=== PATIENT | female | born 1960 | race Caucasian/White ===

== ENCOUNTER 2016-09-21 13:46 | Emergency (ER) | payer OTHER ==
[~2016-09-21] VITALS: Ht 167.6 cm; Wt 77.1 kg
[~2016-09-21 13:46] MED LIST: ACETAMINOPHEN-1 EAC2 PO; AMBIEN 10MG10 MG PO; AMITIZA24 MCG PO; ARIPIPRAZOLE5 M1 PO; ATORVASTATIN CA10 M1 PO; CIPROFLOXACIN500 MG PO; CLONIDINE HYDR0.1 MG PO; DIAZEPAM10 M1 PO; DIBUCAINE 1% TOP; DICYCLOMINE HCL10 MG PO; DIFLUCAN150 MG PO; DILAUDID2 M1 PO; DILAUDID2 MG PO; ELMIRON100 MG PO; ESTRACE0.1 MG/GM VAG; ESTRACE0.5 MG PO; ESTRADIOL1 M1 PO; FENTANYL1 EAC5 TOP; FLUOXETINE HCL20 M2 PO; FUROSEMIDE20 M1 PO; GABAPENTIN300 M2 PO; HYDROXYZINE HCL25 MG PO; HYDROXYZINE PAM50 MG PO; KEFLEX500 M1 PO; LASIX20 M1 PO; LYRICA150 M1 PO; LYRICA75 MG PO; MACROBID100 MG PO; OSPHENA60 MG PO; OXYCODONE5 M1 PO; OXYCODONE5 MG PO; OXYMORPHONE HYD30 MG PO; PERCOCET 325 MG1 TA2 PO; QUETIAPINE FUMA25 MG PO; QUETIAPINE FUMA50 MG PO; REMERON30 M1 PO; SEROQUEL XR400 MG PO; TEMOVATE0.05% TOP; TERAZOL 745 GM VG; TRAMADOL HCL50 M1 PO; TRAMADOL HYDROC50 MG PO; TRAMADOL50 MG PO; VALIUM5 M1 PO; ZOFRAN ODT4 MG PO
--- NOTE | 2016-09-21 14:28 | ED GENERAL ADULT ---
History of Present Illness General Chief Complaint: Female Urogenital Problems Stated Complaint: PT STATES "I HAVE PRESSURE IN MY BUTT" Source: patient Exam Limitations: no limitations Vital Signs & Intake/Output Vital Signs & Intake/Output Vital Signs Date Time Temp Pulse Resp B/P Pulse O2 O2 Flow FiO2 Ox Delivery Rate 09/21 1826 98.6 69 18 143/75 97 Room Air 09/21 1400 98.8 95 20 142/86 97 Room Air Room Air ED Intake and Output 09/22 0000 09/21 1200 Intake Total Output Total Balance Patient 170 lb Weight Allergies Coded Allergies: NSAIDS (Non-Steroidal Anti-Inflamma (HIVES 04/02/16) Sulfa (Sulfonamide Antibiotics) (PER PT LIVER AND KIDNEYS SHUT DOWN 04/02/16) acetaminophen (From TYLENOL) (HIVES 04/02/16) adhesive (TEARS SKIN 04/02/16) aspirin (HIVES, RASH 04/02/16) morphine (INJECTION CAUSING VOMITING 04/02/16) thiopental (ANAPHYLAXIS 04/02/16) Reconcile Medications Acetaminophen With Codeine (Acetaminophen-Cod #4 Tablet) 1 EACH TABLET 1 TAB PO Q6H PRN PAIN (Reported) Atorvastatin Calcium 10 MG TABLET 1 TAB PO DAILY CHOLESTEROL (Reported) Bisacodyl (Women's Laxative) 5 MG TABLET 2 TAB PO AD CONSTIPATION (Reported) Diazepam 10 MG TABLET 1 TAB PO BID PRN ANXIETY/SCIATICA (Reported) Dicyclomine Hydrochloride (Bentyl) 10 MG CAPSULE 1 CAP PO TID PRN CRAMPS Fentanyl 1 EACH PATCH.TD72 1 PAT TOP Q3D PAIN (Reported) Fluoxetine HCl (Prozac) 40 MG CAPSULE 1 CAP PO DAILY MENTAL HEALTH (Reported) Gabapentin 300 MG CAPSULE 2 CAP PO TID NERVE PAIN (Reported) Lidocaine HCl (Lidocaine HCl Viscous) 2 % SOLUTION 15 ML PO DAILY PRN PERIRCTAL PAIN Lidocaine HCl (Lidocaine HCl Viscous) 2 % SOLUTION 15 ML PO DAILY PRN KARYNA- RECTAL PAIN APPLY TO PERIRECTAL AREA DAILY NEEDED Linaclotide (Linzess) 290 MCG CAPSULE 1 CAP PO DAILY GI (Reported) Nitrofurantoin Monohyd/M-Cryst (Nitrofurantoin Yancey-Mcr 100 MG) 100 MG CAPSULE 1 CAP PO BID UTI (Reported) Phenazopyridine HCl 100 MG TABLET 2 TAB PO TID UTI (Reported) Polyethylene Glycol 3350 17 GRAM POWD.PACK 1 PAC PO DAILY GI (Reported) Pregabalin (Lyrica) 150 MG CAPSULE 1 CAP PO TID NERVE PAIN (Reported) Terconazole (Terazol 7) 0.4 % CREAM.APPL 1 A VG Q7D YEAST INFECTION (Reported ) Triage Note: PT TO ED WITH C/O CHRONIC RECTAL PAIN, "I HAVE BEEN ON [employer] O SUPPOSITORIES FOR IT, BUT I CAN'T FIND THEM ANYWHERE". Triage Nurses Notes Reviewed? yes Onset: Gradual Duration: week(s): Timing: recent history HPI: 09/21/16 3 PM 56-year-old female presents to the emergency department complaining of severe rectal pain. The patient states she's had ongoing rectal pain over the past 1-1 /2 months. She is seen a surgeon. She says she was told she has a rectal tear. She says every bowel movement is extremely painful. no fever or vomiting no abdominal pain. On physical exam she does have an external hemorrhoid. Rectal exam is nontender and no abscess was appreciated. Past History Travel History Traveled to [place] past 21 day No Medical History Any Pertinent Medical History? see below for history Neurological: NONE EENT: NONE Cardiovascular: hyperlipidemia Respiratory: NONE Gastrointestinal: SBO Hepatic: NONE Renal: NONE Musculoskeletal: chronic back pain, degen joint disease, falls, sciatica, right knee ligament injury Psychiatric: anxiety, depression Endocrine: NONE Blood Disorders: NONE Cancer(s): NONE SERVICE PLANNER/Reproductive: vulvodynia History of MRSA: No History of VRE: No History of CDIFF: No Surgical History Surgical History: partial knee transplant Psychosocial History Who do you live with Other (see notes) Services at Home None What is your primary language Russian Tobacco Use: Current Daily Use Daily Tobacco Use Amount/Type: => 5 Cigarettes daily ETOH Use: denies use Illicit Drug Use: denies illicit drug use Family History Hx Contributory? No Review of Systems Review of Systems Constitutional: Denies: fever. EENTM: Reports: no symptoms. Respiratory: Reports: no symptoms. Cardiovascular: Reports: no symptoms. GI: Reports: no symptoms. Genitourinary: Reports: no symptoms. Musculoskeletal: Reports: no symptoms. Skin: Reports: no symptoms. Neurological/Psychological: Reports: no symptoms. Hematologic/Endocrine: Reports: no symptoms. Immunologic/Allergic: Reports: no symptoms. Physical Exam Physical Exam General Appearance: alert, awake, anxious, mild distress Head: atraumatic Eyes: Bilateral: PERRL, EOMI. Ears, Nose, Throat: normal pharynx, normal ENT inspection Neck: normal inspection, supple Respiratory: normal breath sounds, chest non-tender, no respiratory distress Cardiovascular: regular rate/rhythm Gastrointestinal: soft, non-tender Rectal: heme negative stool, non-tender, no masses Back: normal inspection, normal range of motion Extremities: normal inspection, normal range of motion Neurologic/Psych: no motor/sensory deficits, awake, alert, oriented x 3 Skin: intact, normal color, warm/dry Comments: The patient rectal and external pelvic exams are negative. labs are unremarkable. urinalysis is negative. contrast pelvic CT unremarkable. the patient did get relief with viscous lidocaine applied to her perirectal area, and Bentyl. she is given follow-up with GI. Core Measures ACS in differential dx? No CVA/TIA Diagnosis: No Severe Sepsis Present: No Septic Shock Present: No Progress Differential Diagnoses I considered the following diagnoses in my evaluation of the patient: [ perirectal abscess, rectal trauma, hemorrhoids, vaginitis, UTI, intra-abdominal abscess, colitis] Plan of Care: Orders Procedure Date/time Status Add-on Test (ER Only) 09/21 1444 Active COMPREHENSIVE METABOLIC PANEL 09/21 1434 Complete CBC WITHOUT DIFFERENTIAL 09/21 1434 Complete CULTURE,URINE 09/21 1416 Active URINALYSIS 09/21 1403 Complete Current Medications Sig/Tresa Start time Last Medication Dose Stop Time Status Admin Acetaminophen 1,000 MG ONCE ONE 09/21 1445 CAN (Ofirmev) 09/21 1446 Laboratory Tests 09/21/16 1451: Anion Gap 7, Estimated GFR > 60, BUN/Creatinine Ratio 8.6, Glucose 88, Calcium 9.6, Total Bilirubin 0.6, AST 21, ALT 38, Alkaline Phosphatase 135 H, Total Protein 6.7, Albumin 3.8, Globulin 2.9, Albumin/Globulin Ratio 1.3, CBC w Diff NO MAN DIFF REQ, RBC 5.93 H, MCV 83.0, MCH 27.9, RDW 15.0 H, MPV 9.0, Gran % 62.9, Lymphocytes % 30.3, Monocytes % 4.2, Eosinophils % 1.5, Basophils % 1.1, Absolute Granulocytes 6.1, Absolute Lymphocytes 2.9, Absolute Monocytes 0.4, Absolute Eosinophils 0.1, Absolute Basophils 0.1, PUBS MCHC 33.6 09/21/16 1416: Urinalysis LIGHT H, Urine Color ORANG H, Urine Clarity CLEAR, Urine pH 5.5, Ur Specific [place] 1.010, Urine Protein 100 H, Urine Ketones TRACE H, Urine Nitrite POS H, Urine Bilirubin NEG, Urine Urobilinogen >=8.0 H, Ur Leukocyte Esterase TRACE H, Ur Microscopic SEDIMENT EXAMINED, Urine WBC RARE, Ur Epithelial Cells MOD H, Urine Mucus RARE, Urine Hemoglobin NEG, Urine Glucose 250 H Microbiology 09/21 141 URINE ROUT: Urine Culture - RES PATIENT: GAGE BARNES PRESENT AGE: 56 PATIENT ACCOUNT NO: [id number] : 58 LOCATION: [facility] ORDERING PHYSICIAN: SANG ANGUIANO DO SERVICE DATE: 09/21/16 EXAM TYPE: CAT - CT PELVIS W IV CONTRAST EXAMINATION: CT PELVIS WITH IV CONTRAST CLINICAL INFORMATION: Severe rectal pain. Evaluate for abscess. COMPARISON: CT abdomen and pelvis most recent prior dated 08/15/2016 TECHNIQUE: Helical scanning was performed with submillimeter collimation through the pelvis with 100 mL of Optiray 320 intravenous contrast. Sagittal and coronal multiplanar 2-D reconstructions were obtained. DLP: 511.64 mGy-cm. FINDINGS: PELVIS: Postoperative changes noted in the visualized small bowel loops . No abnormal fluid collection identified. Evaluation of the rectal wall is limited given the nondistended appearance. No gross evidence of a perirectal abscess. No abnormal presacral stranding or edema.. No gross evidence of fistula formation. OSSEOUS STRUCTURES: Mild degenerative changes of the lumbosacral spine. No acute osseous abnormality. IMPRESSION: 1. No CT evidence of rectal or perirectal abscess formation. Evaluation of the rectal and anal wall is limited. 2. Postoperative changes small bowel loops. DICTATED BY: ARIE CASTANEDA MD DATE/TIME DICTATED:09/21/161619 INSTRUMENTATION FITTER:MADI DATE/TIME TRANSCRIBED:09/21/161619 CONFIDENTIAL, DO NOT COPY WITHOUT APPROPRIATE AUTHORIZATION. <Electronically signed in Other Vendor System> SIGNED BY: ARIE CASTANEDA MD 09/21/16 0721 (SANG ANUGIANO DO) Initial ED EKG: none Departure Departure Disposition: HOME OR SELF CARE Condition: Stable Clinical Impression Primary Impression: Rectal pain Referrals: MARIANNE ACE,ENDER Leon (PCP/Family) Departure Forms: Customer Survey General Discharge Information Prescriptions: Current Visit Scripts Dicyclomine Hydrochloride (Bentyl) 1 CAP PO TID PRN CRAMPS #10 CAP Lidocaine HCl (Lidocaine HCl Viscous) 15 ML PO DAILY PRN PERIRCTAL PAIN #100 ML Lidocaine HCl (Lidocaine HCl Viscous) 15 ML PO DAILY PRN KARYNA-RECTAL PAIN #100 ML APPLY TO PERIRECTAL AREA DAILY NEEDED Comments 09/21/16 6 PM The patient's labs and CT scan are unremarkable. Rectal exam and external vaginal exam are normal. Viscous lidocaine was applied to the perirectal area. She will follow up with GI on Saturday. She'll take Bentyl as needed for the cramping. Warm soaks as directed and follow-up with the superintendent division on Saturday Critical Care Note Critical Care Note Critical Care Time: non-applicable
[2016-09-21 15:06] LABS: ABSOLUTE BASOPHIL COUNT 0.1 /CUMM (0.0-0.2); ABSOLUTE EOSINOPHIL COUNT 0.1 /CUMM (0.0-0.7); ABSOLUTE GRANULOCYTE CT 6.1 /CUMM (1.4-6.5); ABSOLUTE LYMPH COUNT 2.9 /CUMM (1.2-3.4); ABSOLUTE MONOCYTE COUNT 0.4 /CUMM (0.10-0.60); BASOPHIL % 1.1 % (0.0-2.0); EOSINOPHIL % 1.5 % (0-5); GRANULOCYTE % 62.9 % (42.2-75.2); HEMATOCRIT 49.3 % (37-47); MEAN CORPUSCULAR HGB 27.9 PG (27.0-31.0); MEAN CORPUSCULAR HGB CONC 33.6 G/DL (33.0-37.0); PLATELET COUNT 231 /CUMM (130-400); RED BLOOD CELL CT 5.93 /CUMM (4.20-5.40); WHITE BLOOD CELL COUNT 9.6 /CUMM (4.8-10.8)
[2016-09-21] MEDS ORDERED: LINZESS290 MC1 PO (15:20)
[2016-09-21] MEDS ORDERED: PHENAZOPYRIDIN100 M3 PO (15:21)
[2016-09-21] MEDS ORDERED: WOMEN'S LAXATIVE5 M1 PO (15:21)
[2016-09-21] MEDS ORDERED: TERAZOL 745 GM VG (15:22)
[2016-09-21] MEDS ORDERED: NITROFURANTOIN100 M6 PO (15:23)
[2016-09-21] MEDS ORDERED: PROZAC40 M1 PO (15:24)
[2016-09-21] MEDS ORDERED: POLYETHYLENE GL17 GM PO (15:30)
--- NOTE | 2016-09-21 16:38 | CT SCAN REPORT ---
EXAMINATION: CT PELVIS WITH IV CONTRAST CLINICAL INFORMATION: Severe rectal pain. Evaluate for abscess. COMPARISON: CT abdomen and pelvis most recent prior dated 08/15/2016 TECHNIQUE: Helical scanning was performed with submillimeter collimation through the pelvis with 100 mL of Optiray 320 intravenous contrast. Sagittal and coronal multiplanar 2-D reconstructions were obtained. DLP: 511.64 mGy-cm. FINDINGS: PELVIS: Postoperative changes noted in the visualized small bowel loops . No abnormal fluid collection identified. Evaluation of the rectal wall is limited given the nondistended appearance. No gross evidence of a perirectal abscess. No abnormal presacral stranding or edema.. No gross evidence of fistula formation. OSSEOUS STRUCTURES: Mild degenerative changes of the lumbosacral spine. No acute osseous abnormality. IMPRESSION: 1. No CT evidence of rectal or perirectal abscess formation. Evaluation of the rectal and anal wall is limited. 2. Postoperative changes small bowel loops.
[2016-09-21] MEDS ORDERED: BENTYL10 M1 PO (18:16)
[2016-09-21] MEDS ORDERED: LIDOCAINE HCL V15 ML PO ×2 (18:17→18:25)
[2016-09-21 18:26] VITALS: BP 143/75
== END 2016-09-21 18:31 ==
LOC: ERH 13:46
PROVIDERS: Emergency Medicine
DX: K62.89 Other specified diseases of anus and rectum (principal)
CPT/HCPCS: 81001; 87086; 96372; J0500